=== PATIENT | male | born 1980 | race Two or more races ===

== ENCOUNTER 2021-01-21 01:29 | Emergency (ER) | payer MEDICAID ==
[~2021-01-21] VITALS: Ht 167.6 cm; Wt 60.8 kg
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
[2021-01-21] MEDS ORDERED: ONDANSETRON 4 MG TAB.RAPDIS SL ONE (02:30)
[2021-01-21] MEDS ORDERED: MORPHINE SULFATE INJ 2 MG/ML DISP.SYRIN IM ONE (02:30)
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
[2021-01-21] MEDS ORDERED: MORPHINE SULFATE INJ 4 MG/ML DISP.SYRIN ONE (02:42)
[2021-01-21] MEDS ORDERED: ONDANSETRON 4 MG TAB.RAPDIS ONE (02:43)
[2021-01-21 02:53] LABS: BASOPHILS % (AUTO) 0.3 % (0.0-2.0); EOSINOPHILS % (AUTO) 0.2 % (0.0-6.0); HEMATOCRIT 38 % (39-51); LYMPHOCYTES # (AUTO) 1.8 K/uL (0.8-4.8); LYMPHOCYTES % (AUTO) 18.1 % (20.0-44.0); MEAN CORPUSCULAR HGB CONC 35 g/dl (31.0-36.0); MEAN CORPUSCULAR VOLUME 87 fL (80-96); MONOCYTES # (AUTO) 0.5 K/uL (0.1-1.30); MONOCYTES % (AUTO) 5.5 % (2.0-12.0); NEUTROPHILS # (AUTO) 7.5 K/uL (1.8-8.9); NEUTROPHILS % (AUTO) 75.9 % (43.0-81.0); PLATELET COUNT (AUTO) 231 K/uL (150-450); RED BLOOD CELL COUNT(AUTO) 4.32 MIL/uL (4.5-6.0); WHITE BLOOD COUNT (AUTO) 9.9 K/uL (4.3-11.0)
--- NOTE | 2021-01-21 03:12 | NUR ---
called [facility], to have images read. Per [place], radiologist is "working down the list"
[2021-01-21 03:31] LABS: ALBUMIN 3.7 g/dL (3.4-5.0); BILIRUBIN,DIRECT 0.1 mg/dL (0.0-0.2); BILIRUBIN,TOTAL 0.3 mg/dL (0.2-1.0); TOTAL PROTEIN, SERUM 7.9 g/dL (6.4-8.2)
--- NOTE | 2021-01-21 03:31 | NUR ---
CALLED DR. MAYER PER MD ORDER, LEFT MESSAGE.
--- NOTE | 2021-01-21 03:41 | NUR ---
covid swab collected and sent to lab
[2021-01-21 03:44] LABS: CALCIUM, SERUM 8.9 mg/dL (8.5-10.1); CREATININE 0.9 mg/dL (0.6-1.3)
--- NOTE | 2021-01-21 03:55 | NUR ---
CALLED DR. MAYER PER MD ORDER, LEFT MESSAGE.
--- NOTE | 2021-01-21 04:00 | NUR ---
IV LINE INSERTED AT LAC 20G, AND R HAND 20G, ALL HUBS PATENT AND FLUSHING WELL, SALINE LOCKED. ASEPTIC TECHNIQUE WAS OBSERVED.
--- NOTE | 2021-01-21 04:26 | NUR ---
CALLED DR. MAYER PER MD ORDER, LEFT MESSAGE.
--- NOTE | 2021-01-21 04:34 | NUR ---
CASE PRESENTED TO [facility] FOR [facility].
--- NOTE | 2021-01-21 04:38 | NUR ---
FACESHEET, LABS RESULTS AND COVID RESULT FAXED TO REQUESTED.
--- NOTE | 2021-01-21 04:50 | NUR ---
facesheet and ct scan re-faxed to [facility].
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
--- NOTE | 2021-01-21 05:17 | NUR ---
Spoke to Ace at [facility]. 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 Per Dr Lew, pt will be transfered and admitted to a Tele unit. Will advise if anything changes
--- NOTE | 2021-01-21 07:05 | NUR ---
GAVE REPORT TO VIC JEWELL RN FOR DOTTIE
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
--- NOTE | 2021-01-21 10:57 | NUR ---
REPORT GIVEN TO [facility] RN FOR PT TRANSFER TO [facility].
--- NOTE | 2021-01-21 11:00 | NUR ---
REPORT GIVEN TO [facility] FOR [facility]OTT[facility].
[2021-01-21 11:01] VITALS: BP 110/58
== END 2021-01-21 11:07 | disposition short-term general hospital (02) ==
LOC: ER 02:07
DX: S06.5X0A Traumatic subdural hemorrhage without loss of consciousness, initial encounter (principal); W19.XXXA Unspecified fall, initial encounter; W01.10XA Fall on same level from slipping, tripping and stumbling with subsequent striking against unspecified object, initial encounter; Y92.89 Other specified places as the place of occurrence of the external cause; R11.10 Vomiting, unspecified; Y04.2XXA Assault by strike against or bumped into by another person, initial encounter; Z20.822 Contact with and (suspected) exposure to COVID-19
CPT/HCPCS: 36415; 70450; 80048; 80076; 85025; 85730; 87426; 96372; 99291; C9803; J2270; Q0162